=== PATIENT | male | born 1965 | race Caucasian/White ===

== ENCOUNTER 2017-01-29 09:31 | Emergency (ER) | payer BC, OTHER ==
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
== END 2017-01-29 11:50 | disposition home or self-care (01) ==
LOC: ER 09:31
DX: S42.032A Displaced fracture of lateral end of left clavicle, initial encounter for closed fracture (principal); S00.03XA Contusion of scalp, initial encounter; V43.92XA Unspecified car occupant injured in collision with other type car in traffic accident, initial encounter